=== PATIENT | female | born 1975 | race Caucasian/White ===

== ENCOUNTER 2017-05-21 01:29 | Inpatient (IN) | payer OTHER ==
[2017-05-21 01:50] VITALS: BMI 25.8
[2017-05-21] MEDS ORDERED: ONDANSETRON 4 MG/2 ML VIAL IVPUSH ONE ×2 (02:44→21:51)
[2017-05-21] MEDS ORDERED: SODIUM CHLORIDE 1,000 ML IV SCH (03:00)
[2017-05-21] MEDS ORDERED: ONDANSETRON 4 MG/2 ML VIAL ONE ×2 (03:00→17:06)
--- NOTE | 2017-05-21 03:05 | PDOC ---
Attending Attestation - HPI HPI: 05/21/17 03:09 The patient is a 41 year old female with a past medical history of gallstones who presents to the emergency department with nausea, vomiting, and bloody diarrhea for 5 hours. The patient states that she ate talapia and mash potatoes for dinner yesterday and became sick shortly thereafter. She endorses associated chills and 10/10 pelvic pain. - Medical Decision Making 05/21/17 03:09 Documentation prepared by Bird De La Rosa, acting as associate medical director for Daryl Vick DO. <Bird De La Rosa - Last Filed: 05/21/17 03:09> - Resident Resident Name: Nidia Worrell - ED Attending Attestation I have performed the following: I have examined & evaluated the patient, The case was reviewed & discussed with the resident, I agree w/resident's findings & plan, Exceptions are as noted - Physicial Exam PE: 05/26/17 20:21 *Physical Exam General Appearance: Yes: Appropriately Dressed. No: Apparent Distress, Intoxicated HEENT: positive: EOMI, JUVE, Normal ENT Inspection, Normal Voice, TMs Normal, Pharynx Normal. negative: Pale Conjunctivae, Photophobia, Scleral Icterus (R), Scleral Icterus (L) Neck: positive: Trachea midline, Normal Thyroid, Supple. negative: Tender, Rigid, Carotid bruit, Stridor, Lymphadenopathy (R), Lymphadenopathy (L), Thyromegaly Respiratory/Chest: positive: Lungs Clear, Normal Breath Sounds. negative: Chest Tender, Respiratory Distress, Accessory Muscle Use, Labored Respiration, RES, Crackles, Rales, Rhonchi, Stridor, Wheezing, Dullness Cardiovascular: positive: Regular Rhythm, Regular Rate, S1, S2. negative: Edema , JVD, Murmur, Bradycardia, Tachycardia Vascular Pulses: Dorsalis-Pedis (R): 2+, Doralis-Pedis (L): 2+ Gastrointestinal/Abdominal: positive: Normal Bowel Sounds, Flat, Soft. diffuse tenderness negative: Organomegaly, Pulsatile Mass, Increased Bowel Sounds, Decreased BS, Distended, Guarding, Rebound, Hernia, Hepatomegaly, Spleenomegaly Lymphatic: negative: Adenopathy, Tenderness Musculoskeletal: positive: Normal Inspection. negative: CVA Tenderness, Decreased Range of Motion Extremity: positive: Normal Capillary Refill, Normal Inspection, Normal Range of Motion, Pelvis Stable. negative: Tender, Pedal Edema, Swelling, Erythema Integumentary: positive: Normal Color, Dry, Warm. negative: Cyanotic, Erythema , Jaundice, Rash Neurologic: positive: sales development consultant II-XII NML intact, Fully Oriented, Alert, Normal Mood/ Affect, Motor Strength 5/5. negative: EOM Palsy, Facial Droop, Sensory Deficit - Medical Decision Making 05/26/17 20:21 Pt was admitted to Med surg <Daryl Vick - Last Filed: 05/26/17 20:22>
--- NOTE | 2017-05-21 03:09 | PDOC ---
History of Present Illness - General Chief Complaint: Rectal Bleed Stated Complaint: BLOOD IN STOOL Time Seen by Provider: 05/21/17 02:34 History Source: Patient Exam Limitations: No Limitations - History of Present Illness Initial Comments: 05/21/17 03:07 41 F with PMH gallstones who presents to the ED c/o nausea and diarrhea over the past 5 hours. As per pt, at 10PM she ate Tilapia and mashed potatoes, and soon after developed repetitive episodes of NBNB emesis and bloody diarrhea. Pt states that blood is mixed in with her stool, and that she has also "passed many clots." During this time, pt endorses chills and 10/10 diffuse pelvic pain , which has no exacerbating or alleviating fx. Her LMP was on Thursday and she was sexually active on 05/06/17. She does not use control. Her daughter also ate the same meal and did not develop sx. Pt denies BAHENA, fever, SOB, chest pain, or changes in urinary function. 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 denies cigarette, alcohol, or recreational drug use Past History - Past Medical History Allergies/Adverse Reactions: Allergies Allergy/AdvReac Type Severity Reaction Status Date / Time No Known Allergies Allergy Verified 05/21/17 01:44 Home Medications: Ambulatory Orders Ibuprofen [Motrin -] 600 mg PO PRN 05/21/17 COPD: No - Suicide/Smoking/Psychosocial Hx Smoking History: Current every day smoker Number of Cigarettes Smoked Daily: 2 Information on smoking cessation initiated: No Hx Alcohol Use: No Drug/Substance Use Hx: No Review of Systems - Review of Systems Able to Perform ROS?: Yes Is the patient limited Urdu proficient: No Constitutional: Yes: Chills ABD/GI: Yes: Blood Streaked Bowels, Nausea, Vomiting *Physical Exam - Vital Signs Last Vital Signs Temp Pulse Resp BP Pulse Ox 97.7 F 67 18 114/72 99 05/21/17 01:42 05/21/17 01:42 05/21/17 01:42 05/21/17 01:42 05/21/17 01:42 - Physical Exam General Appearance: Yes: Moderate Distress, Other (+actively vomiting, shaking) HEENT: positive: EOMI, JUVE Neck: positive: Supple Respiratory/Chest: positive: Lungs Clear, Normal Breath Sounds Cardiovascular: positive: Regular Rhythm, Regular Rate, S1, S2 Vascular Pulses: Dorsalis-Pedis (R): 2+, Doralis-Pedis (L): 2+ Gastrointestinal/Abdominal: positive: Tenderness (+diffuse abdominal tenderness ) Rectal Exam: positive: other (+actively bleeding) Neurologic: positive: senior sales consultant II-XII NML intact Heart Score/ECG Review - ECG Impressions Comment:: 05/21/17 06:11 NSR, Qtc 459 ms, HI 164ms ED Treatment Course - LABORATORY CBC & Chemistry Diagram: 05/21/17 03:23 05/21/17 03:23 Medical Decision Making - Medical Decision Making 05/21/17 03:24 41 F with PMH gallstones who presents to the ED c/o nausea and diarrhea over the past 5 hours. Suspect infectious etiology as sudden, rapid onset, possible ? allergy. Will get CT abdomen/pelvis w/o contrast- to r/o colitis. Will order the following CBC CMP CT abd pelvis w/o contrast IVF Zofran B Hcg 05/21/17 04:50 CT scan reveals colitis splenic flexure to rectum will start abx ill appearing, white count ~20 - reactive+colitis 05/21/17 05:16 d/w Dr. Mccarthy for med-surg *DC/Admit/Observation/Transfer Diagnosis at time of Disposition: Colitis - Discharge Dispostion Condition at time of disposition: Guarded Admit: Yes - Referrals Referrals: Nicanor Santos [Primary Care Provider] - - Patient Instructions - Post Discharge Activity
[2017-05-21 03:31] LABS: BASO % 0.4 % (0-2.0); EOS % 0.1 % (0-4.5); HEMATOCRIT 43.2 % (32.4-45.2); HEMOGLOBIN 14.3 GM/dL (10.7-15.3); LYMPH % 6.3 % (8-40); MCH 26.9 pg (25.7-33.7); MCHC 33.2 g/dl (32.0-36.0); MEAN PLT VOLUME 9.3 fl (7.5-11.1); MONO % 5.7 % (3.8-10.2); NEUT % 87.5 % (42.8-82.8); PLATELET COUNT 255 K/MM3 (134-434); RBC 5.34 M/mm3 (3.60-5.2); RDW 13.5 % (11.6-15.6); WHITE BLOOD COUNT 20.9 K/mm3 (4.0-10.0)
[2017-05-21 04:04] LABS: ALK PHOS 96 U/L (45-117); ANION GAP 11 (8-16); BILIRUBIN,TOTAL 0.4 mg/dL (0.2-1.0); BLOOD UREA NITROGEN 14 mg/dL (7-18); CALCIUM 8.9 mg/dL (8.5-10.1); CHLORIDE 106 mmol/L (98-107); CO2 21 mmol/L (21-32); CREATININE 0.9 mg/dL (0.55-1.02); GLUCOSE,RANDOM 137 mg/dL (74-106); POTASSIUM 4.1 mmol/L (3.5-5.1); SGOT/AST 27 U/L (15-37); SGPT/ALT 48 U/L (12-78); SODIUM 138 mmol/L (136-145); TOT PROT 7.2 g/dl (6.4-8.2)
[2017-05-21] MEDS ORDERED: ONDANSETRON 4 MG/2 ML VIAL IVPUSH STA (04:52)
[2017-05-21] MEDS ORDERED: morphine CARPU-JECT 2 MG/1 ML DISP.SYRIN IVPUSH ONE (04:52)
[2017-05-21] MEDS ORDERED: METOCLOPRAMIDE HCL INJECTION 10 MG/2 ML VIAL IVPUSH ONE (04:53)
[2017-05-21] MEDS ORDERED: SODIUM CHLORIDE 1,000 ML IV STA (04:53)
[2017-05-21] MEDS ORDERED: METOCLOPRAMIDE HCL INJECTION 10 MG/2 ML VIAL ONE (04:58)
[2017-05-21] MEDS ORDERED: MORPHINE SULFATE 10 MG/1 ML *VIAL ONE (05:01)
[2017-05-21 05:43] LABS: INR 1.04 (0.82-1.09); PROTHROMBIN TIME (PATIENT) 11.8 SEC (9.98-11.88)
--- NOTE | 2017-05-21 06:01 | HP ---
CHIEF COMPLAINT: N/V/D PCP: Akhil Santos HISTORY OF PRESENT ILLNESS: This is a 41 year old female with a past medical history of gallstones presented to the ED with a 5 hour history of nausea, NBNB vomiting and bloody diarrhea. Pt states she ate tilapia and mashed potatoes and then became ill shortly after eating. Pt reports last episode BM was at home, none here. one further episode vomiting here. ER course was notable for: (1) WBC 20.9 (2) CT c/w colitis Recent Travel: pt denies PAST MEDICAL HISTORY: gallstones PAST SURGICAL HISTORY: L breast mass excision urethral diverticulum excision Social History: Smokin cig/day Alcohol: pt denies Drugs: pt denies Family History: father, one sister and one daughter with asthma no other family memebers with medical problems Allergies No Known Allergies Allergy (Verified 05/21/17 01:44) HOME MEDICATIONS: 3 Medication Instructions Recorded Ibuprofen [Motrin -] 600 mg PO PRN 05/21/17 REVIEW OF SYSTEMS CONSTITUTIONAL: Absent: fever, chills, diaphoresis, generalized weakness, malaise, loss of appetite, weight change HEENT: Absent: rhinorrhea, nasal congestion, throat pain, throat swelling, difficulty swallowing, mouth swelling, ear pain, eye pain, visual changes CARDIOVASCULAR: Absent: chest pain, syncope, palpitations, irregular heart rate, lightheadedness , peripheral edema RESPIRATORY: Absent: cough, shortness of breath, dyspnea with exertion, orthopnea, wheezing, stridor, hemoptysis GASTROINTESTINAL: Present: abdominal pain, nausea, vomiting, diarrhea Absent: abdominal distension, constipation, melena, hematochezia GENITOURINARY: Absent: dysuria, frequency, urgency, hesitancy, hematuria, flank pain, genital pain MUSCULOSKELETAL: Absent: myalgia, arthralgia, joint swelling, back pain, neck pain SKIN: Absent: rash, itching, pallor HEMATOLOGIC/IMMUNOLOGIC: Absent: easy bleeding, easy bruising, lymphadenopathy, frequent infections ENDOCRINE: Absent: unexplained weight gain, unexplained weight loss, heat intolerance, cold intolerance NEUROLOGIC: Absent: headache, focal weakness or paresthesias, dizziness, unsteady gait, seizure, mental status changes, bladder or bowel incontinence PSYCHIATRIC: Absent: anxiety, depression, suicidal or homicidal ideation, hallucinations. PHYSICAL EXAMINATION Vital Signs - 24 hr 3 05/21/17 01:42 Temperature 97.7 F Pulse Rate 67 Respiratory 18 Rate Blood Pressure 114/72 O2 Sat by Pulse 99 Oximetry (%) GENERAL: Awake, alert, and fully oriented, in no acute distress. HEAD: Normal with no signs of trauma. EYES: Pupils equal, round and reactive to light, extraocular movements intact, sclera anicteric, conjunctiva clear. No lid lag. EARS, NOSE, THROAT: Ears normal, nares patent, oropharynx clear without exudates. Moist mucous membranes. NECK: Normal range of motion, supple without lymphadenopathy, JVD, or masses. LUNGS: Breath sounds equal, clear to auscultation bilaterally. No wheezes, and no crackles. No accessory muscle use. HEART: Regular rate and rhythm, normal S1 and S2 without murmur, rub or gallop. ABDOMEN: Soft, tender on deep palpation to RLQ, not distended, normoactive bowel sounds, no guarding, no rebound, no masses. No hepatomegaly or splenomegaly. MUSCULOSKELETAL: Normal range of motion at all joints. No bony deformities or tenderness. No CVA tenderness. UPPER EXTREMITIES: 2+ pulses, warm, well-perfused. No cyanosis. No clubbing. No peripheral edema. LOWER EXTREMITIES: 2+ pulses, warm, well-perfused. No calf tenderness. No peripheral edema. NEUROLOGICAL: Cranial nerves II-XII intact. Normal speech. Normal gait. PSYCHIATRIC: Cooperative. Good eye contact. Appropriate mood and affect. SKIN: Warm, dry, normal turgor, no rashes or lesions noted, normal capillary refill. Laboratory Results - last 24 hr 3 05/21/17 05/21/17 05/21/17 03:23 03:23 03:23 WBC 20.9 H RBC 5.34 H Hgb 14.3 Hct 43.2 MCV 81.0 MCH 26.9 MCHC 33.2 RDW 13.5 Plt Count 255 MPV 9.3 Neutrophils % 87.5 H Lymphocytes % 6.3 L Monocytes % 5.7 Eosinophils % 0.1 Basophils % 0.4 PT with INR 11.80 INR 1.04 Sodium 138 Potassium 4.1 Chloride 106 Carbon Dioxide 21 Anion Gap 11 BUN 14 Creatinine 0.9 Creat Clearance w eGFR > 60 Random Glucose 137 H Calcium 8.9 Total Bilirubin 0.4 AST 27 ALT 48 Alkaline Phosphatase 96 Total Protein 7.2 Albumin 4.0 Beta HCG, Quant < 1.0 Blood Type O POSITIVE Antibody Screen Negative ECG Normal sinus rhythm Vent rate 68, QTC [address]/T wave changes ASSESSMENT/PLAN: 41yF with PMH gallstones presented to the ED with N/V and bloody diarrhea. Colitis - cont levaquin and flagyl - NS @ 100cc/hr - NPO for now, may trial clear liquids for lunch if no further vomiting/ diarrhea - stool for micro specimens - consider GI consult if not improving - repeat CBC at 9am (6hours from first) DVT PPX - defer at this time, expected LOS<48h FEN - NS @ 100cc/hr - BMP at 9am - NPO for now Dispo: Pt admitted to observation status Visit type - Emergency Visit Emergency Visit: Yes ED Registration Date: 05/21/17 Care time: The patient presented to the Emergency Department on the above date and was hospitalized for further evaluation of their emergent condition. - New Patient This patient is new to me today: Yes Date on this admission: 05/21/17 - Critical Care Critical Care patient: No Hospitalist Screening - Colonoscopy Questionnaire Colonoscopy Questionnaire: Colonoscopy Questionnaire - Patient: 50 - 75 years old and never had a screening colonoscopy: No History of colon or rectal polyps, or CA: No History of IBD, Crohn's disease or UC: No History of abdominal radiation therapy as a child: No - Relative: 1 with colon or rectal CA, or polyps at age 60 or younger: No Colon or rectal CA diagnosed at age 45 or younger: No Multiple relatives with colon or rectal CA: No - Outcome: Screening Result: Negative Screen
[2017-05-21] MEDS: SODIUM CHLORIDE 1,000 ML IV SCH (06:17)
--- NOTE | 2017-05-21 08:48 | PN ---
<Talha Espinoza - Last Filed: 05/21/17 15:35> Physical Exam: SUBJECTIVE: Patient seen and examined at bedside. had non bloody non vomiting and bloody diarrhea last night after she ate fish Telabia. she denies any fever , chills but she has been taking Ibuprofen. reports diffuse abdominal pain. she denies any chest pain or sob , palpitation , no headache or light headedness. had multiple BM . OBJECTIVE: Vital Signs Period Temp Pulse Resp BP Sys/Pickreing Pulse Ox Last 24 Hr 97.7 F-98.8 F 65-67 18-18 99-114/50-72 98-99 GENERAL: The patient is awake, alert, and fully oriented, in mild distress. HEAD: Normal with no signs of trauma. EYES: PERRL, extraocular movements intact, sclera anicteric, conjunctiva clear. ENT: moist mucous membranes. NECK: supple. LUNGS: Breath sounds equal, clear to auscultation bilaterally, no wheezes, no crackles, no accessory muscle use. HEART: Regular rate and rhythm, S1, S2 without murmur, rub or gallop. ABDOMEN: Soft, diffuse tendererness LLQ and LUQ, nondistended, normoactive bowel sounds, no guarding, no rebound, EXTREMITIES: 2+ pulses, warm, well-perfused, no edema. NEUROLOGICAL: no focal deficit. Normal speech, gait not observed. PSYCH: Normal mood, normal affect. SKIN: Warm, dry, normal turgor, Laboratory Results - last 24 hr 05/21/17 05/21/17 05/21/17 03:23 03:23 03:23 WBC 20.9 H RBC 5.34 H Hgb 14.3 Hct 43.2 MCV 81.0 MCH 26.9 MCHC 33.2 RDW 13.5 Plt Count 255 MPV 9.3 Neutrophils % 87.5 H Lymphocytes % 6.3 L Monocytes % 5.7 Eosinophils % 0.1 Basophils % 0.4 PT with INR INR Sodium 138 Potassium 4.1 Chloride 106 Carbon Dioxide 21 Anion Gap 11 BUN 14 Creatinine 0.9 Creat Clearance w eGFR > 60 Random Glucose 137 H Calcium 8.9 Total Bilirubin 0.4 AST 27 ALT 48 Alkaline Phosphatase 96 Total Protein 7.2 Albumin 4.0 Beta HCG, Quant Blood Type O POSITIVE Antibody Screen Negative 05/21/17 05/21/17 03:23 05:21 WBC RBC Hgb Hct MCV MCH MCHC RDW Plt Count MPV Neutrophils % Lymphocytes % Monocytes % Eosinophils % Basophils % PT with INR 11.80 INR 1.04 Sodium Potassium Chloride Carbon Dioxide Anion Gap BUN Creatinine Creat Clearance w eGFR Random Glucose Calcium Total Bilirubin AST ALT Alkaline Phosphatase Total Protein Albumin Beta HCG, Quant < 1.0 Blood Type Antibody Screen Active Medications Generic Name Dose Route Start Last Admin Trade Name Freq PRN Reason Stop Dose Admin Sodium Chloride 1,000 mls @ 100 mls/hr 05/21/17 06:15 05/21/17 06:17 Normal Saline - IV 100 mls/hr ASDIR RINA Administration Metronidazole 500 mg in 100 mls @ 100 mls/hr 05/21/17 10:00 Flagyl 500mg Premixed Ivpb - IVPB Q8H-IV RINA Levofloxacin 500 mg in 100 mls @ 100 mls/hr 05/22/17 06:00 Levaquin 500 Mg Premixed Ivpb - IVPB DAILY@0600 RINA CBC, BMP 05/21/17 03:23 05/21/17 03:23 EKG: NSR,Vent rate 68, QTC 459No acute St/T wave changes Ct abdomen and pelvis : acute colitis from transverse till rectum , choledocolithisis with no acute cholecystitis , no CBD dilation. 3 cm left ovarian cysts. ASSESSMENT/PLAN: 41 year old female with PMh of choledocolithisis presented to the hospital with one day h/o of NBNB vomiting and bloody diarrhea was found to have acute cholitis on Ct scan and was admitted to inpatient for further evaluation. # Acute cholitis (infectious vs inflammatory ) with bloody diarrhea * wbc 20.9 but no fever or chills. * N/V after dinner last night diffuse abdominal pain with LLQ tenderness , * TA with blood on exam * H/O recent abx * C.diff toxin assays * Stool ove and paracytes * CBC , CMP * IV fluids NS @ 100 CC/hr * started Metronidazol 500 IVBP q 8hr and Levaquin 500 mg IVBP daily * NPO for now to rest bryant bowel * GI Consulted appreciate recommendations : consider colonoscopy if did not improve in 3 days or 6 weeks from now per GI. * Zofran PRN for nausea Proph : * DVTs: Early ambulations * GI: no need for now * # FEN: * F: NS @ 100 CC/hr * E: WNL monitor BMP * N: NPO for now # Dispo: admit to inpatient services. Visit type - Emergency Visit Emergency Visit: Yes ED Registration Date: 05/21/17 Care time: The patient presented to the Emergency Department on the above date and was hospitalized for further evaluation of their emergent condition. - New Patient This patient is new to me today: Yes Date on this admission: 05/21/17 - Critical Care Critical Care patient: No <LindaJordan - Last Filed: 05/21/17 17:21> Physical Exam: Patient is feeling better today. No diarrhea , developed bloody diarrhea after having Telapia. Developed fever and chills. presented with Leukocytosis of 20, 000 trending down 14K today on IV antibiotic Levaquin and Flagyl will continue, GI consulted. Vital Signs Temperature 98.7 F 05/21/17 08:10 Pulse Rate 60 05/21/17 14:53 Respiratory Rate 18 05/21/17 14:53 Blood Pressure 100/55 05/21/17 14:53 O2 Sat by Pulse Oximetry (%) 99 05/21/17 14:53 CBCD WBC 14.9 K/mm3 (4.0-10.0) H 05/21/17 09:18 RBC 4.91 M/mm3 (3.60-5.2) 05/21/17 09:18 Hgb 13.3 GM/dL (10.7-15.3) 05/21/17 09:18 Hct 40.0 % (32.4-45.2) 05/21/17 09:18 MCV 81.4 fl (80-96) 05/21/17 09:18 MCHC 33.2 g/dl (32.0-36.0) 05/21/17 09:18 RDW 13.9 % (11.6-15.6) 05/21/17 09:18 Plt Count 226 K/MM3 (134-434) 05/21/17 09:18 MPV 8.7 fl (7.5-11.1) 05/21/17 09:18 CMP Sodium 141 mmol/L (136-145) 05/21/17 09:18 Potassium 4.3 mmol/L (3.5-5.1) 05/21/17 09:18 Chloride 108 mmol/L (98-107) H 05/21/17 09:18 Carbon Dioxide 27 mmol/L (21-32) 05/21/17 09:18 Anion Gap 6 (8-16) L 05/21/17 09:18 BUN 11 mg/dL (7-18) 05/21/17 09:18 Creatinine 0.7 mg/dL (0.55-1.02) 05/21/17 09:18 Creat Clearance w eGFR > 60 (>60) 05/21/17 03:23 Random Glucose 110 mg/dL (74-106) H 05/21/17 09:18 Calcium 7.9 mg/dL (8.5-10.1) L 05/21/17 09:18 Total Bilirubin 0.4 mg/dL (0.2-1.0) 05/21/17 03:23 AST 27 U/L (15-37) 05/21/17 03:23 ALT 48 U/L (12-78) 05/21/17 03:23 Alkaline Phosphatase 96 U/L (45-117) 05/21/17 03:23 Total Protein 7.2 g/dl (6.4-8.2) 05/21/17 03:23 Albumin 4.0 g/dl (3.4-5.0) 05/21/17 03:23 Home Medications Medication Instructions Recorded Ibuprofen [Motrin -] 600 mg PO PRN 05/21/17 Current Medications Generic Name Dose Route Start Last Admin Trade Name Víctorq PRN Reason Stop Dose Admin Acetaminophen 650 mg 05/21/17 16:52 Tylenol - PO Q6H PRN PAIN Sodium Chloride 1,000 mls @ 100 mls/hr 05/21/17 06:15 05/21/17 06:17 Normal Saline - IV 100 mls/hr ASDIR RINA Administration Metronidazole 500 mg in 100 mls @ 100 mls/hr 05/21/17 10:00 05/21/17 10:54 Flagyl 500mg Premixed Ivpb - IVPB 100 mls/hr Q8H-IV RINA Administration Levofloxacin 500 mg in 100 mls @ 100 mls/hr 05/22/17 06:00 Levaquin 500 Mg Premixed Ivpb - IVPB DAILY@0600 [facility] Ondansetron HCl 6 mg 05/21/17 16:50 05/21/17 17:14 Zofran Injection IVPB 6 mg Q6H PRN Administration NAUSEA
[2017-05-21 09:26] LABS: HEMOGLOBIN 13.3 GM/dL (10.7-15.3); MCH 27.1 pg (25.7-33.7); MCHC 33.2 g/dl (32.0-36.0); MEAN CELL VOLUME 81.4 fl (80-96); MEAN PLT VOLUME 8.7 fl (7.5-11.1); PLATELET COUNT 226 K/MM3 (134-434); RBC 4.91 M/mm3 (3.60-5.2); RDW 13.9 % (11.6-15.6); WHITE BLOOD COUNT 14.9 K/mm3 (4.0-10.0)
[2017-05-21 10:07] LABS: ANION GAP 6 (8-16); BLOOD UREA NITROGEN 11 mg/dL (7-18); CALCIUM 7.9 mg/dL (8.5-10.1); CHLORIDE 108 mmol/L (98-107); CO2 27 mmol/L (21-32); CREATININE 0.7 mg/dL (0.55-1.02); GLUCOSE,RANDOM 110 mg/dL (74-106); MAGNESIUM 1.8 mg/dL (1.8-2.4); PHOSPHOROUS 4.1 mg/dL (2.5-4.9); POTASSIUM 4.3 mmol/L (3.5-5.1); SODIUM 141 mmol/L (136-145)
--- NOTE | 2017-05-21 11:37 | EKG ---
Test Reason : Blood Pressure : / mmHG Vent. Rate : 068 BPM Atrial Rate : 068 BPM P-R Int : 164 ms QRS Dur : 074 ms QT Int : 432 ms P-R-T Axes : 067 059 052 degrees QTc Int : 459 ms NORMAL SINUS RHYTHM POSSIBLE LEFT ATRIAL ENLARGEMENT LOW VOLTAGE QRS BORDERLINE ECG NO PREVIOUS ECGS AVAILABLE Confirmed by LUZMARIA CARVER MD ([id number]) on 05/21/2017 11:36:56 AM Referred By: Confirmed By:LUZMARIA CARVER MD
[2017-05-21 11:41] LABS: PLATELET ESTIMATE ADEQUATE
--- NOTE | 2017-05-21 12:17 | CON.GI ---
Consult Consult Specialty:: GI Reason for Consultation:: hematochezia, gastroneteritis - History of Present Illness History of Present Illness: The patient is a 41 year old female with a past medical history of gallstones who presents to the emergency department with nausea, vomiting, and bloody diarrhea for 5 hours. The patient states that she ate talapia and mash potatoes for dinner yesterday and developed nausea, vomiting followed by hematochezia and lower abdominal cramps. Pt reports chills. Her daughter, who had the same food, appears to be fine. Took Advil and Motrin earlier that day for tooth ache. Deneis chronic NSAID use. No prior episodes of the same. No recent changes in bowels, weight loss, joint, skin, back, eye symptoms. No personal, or family history of chronic colitis. - History Source History Provided By: Patient - Alcohol/Substance Use Hx Alcohol Use: No - Smoking History Smoking history: Current every day smoker Aproximately how many cigarettes per day: 2 Home Medications - Allergies Allergies/Adverse Reactions: Allergies Allergy/AdvReac Type Severity Reaction Status Date / Time No Known Allergies Allergy Verified 05/21/17 01:44 - Home Medications Home Medications: Ambulatory Orders Ibuprofen [Motrin -] 600 mg PO PRN 05/21/17 Family Disease History - Family Disease History Family History: Unremarkable Review of Systems Findings/Remarks: at base line prior to last night Physical Exam-GI Vital Signs: Vital Signs Temperature 98.7 F 05/21/17 08:10 Pulse Rate 65 05/21/17 08:10 Respiratory Rate 18 05/21/17 08:10 Blood Pressure 102/60 05/21/17 08:10 O2 Sat by Pulse Oximetry (%) 99 05/21/17 08:10 Constitutional: Yes: Well Nourished, No Distress, Calm Eyes: Yes: Conjunctiva Clear HENT: Yes: Atraumatic Neck: Yes: Supple Cardiovascular: Yes: Regular Rate and Rhythm Respiratory: Yes: Regular Gastrointestinal Inspection: No: Ascites, Distention ...Auscultate: Yes: Normoactive Bowel Sounds ...Palpate: Yes: Tenderness. No: Firm/Rigid, Guarding Neurological: Yes: Alert, Oriented Labs: CBC, BMP 05/21/17 09:18 05/21/17 09:18 INR, PTT INR 1.04 (0.82-1.09) 05/21/17 05:21 Laboratory Tests 05/21/17 05/21/17 05/21/17 03:23 03:23 03:23 WBC 20.9 H RBC 5.34 H Hgb 14.3 Hct 43.2 MCV 81.0 MCH 26.9 MCHC 33.2 RDW 13.5 Plt Count 255 MPV 9.3 Neutrophils % 87.5 H Neutrophils % (Manual) Band Neutrophils % Lymphocytes % 6.3 L Lymphocytes % (Manual) Monocytes % 5.7 Monocytes % (Manual) Eosinophils % 0.1 Basophils % 0.4 Platelet Estimate PT with INR INR Sodium 138 Potassium 4.1 Chloride 106 Carbon Dioxide 21 Anion Gap 11 BUN 14 Creatinine 0.9 Creat Clearance w eGFR > 60 Random Glucose 137 H Calcium 8.9 Phosphorus Magnesium Total Bilirubin 0.4 AST 27 ALT 48 Alkaline Phosphatase 96 Total Protein 7.2 Albumin 4.0 Beta HCG, Quant Stool Occult Blood Blood Type O POSITIVE Antibody Screen Negative 05/21/17 05/21/17 05/21/17 03:23 05:21 09:18 WBC 14.9 H RBC 4.91 Hgb 13.3 Hct 40.0 MCV 81.4 MCH 27.1 MCHC 33.2 RDW 13.9 Plt Count 226 MPV 8.7 Neutrophils % No Result Required. Neutrophils % (Manual) 89.0 H Band Neutrophils % 4.0 Lymphocytes % No Result Required. Lymphocytes % (Manual) 4.0 L Monocytes % Monocytes % (Manual) 3 L Eosinophils % Basophils % Platelet Estimate Adequate PT with INR 11.80 INR 1.04 Sodium Potassium Chloride Carbon Dioxide Anion Gap BUN Creatinine Creat Clearance w eGFR Random Glucose Calcium Phosphorus Magnesium Total Bilirubin AST ALT Alkaline Phosphatase Total Protein Albumin Beta HCG, Quant < 1.0 Stool Occult Blood Blood Type Antibody Screen 05/21/17 05/21/17 09:18 09:41 WBC RBC Hgb Hct MCV MCH MCHC RDW Plt Count MPV Neutrophils % Neutrophils % (Manual) Band Neutrophils % Lymphocytes % Lymphocytes % (Manual) Monocytes % Monocytes % (Manual) Eosinophils % Basophils % Platelet Estimate PT with INR INR Sodium 141 Potassium 4.3 Chloride 108 H Carbon Dioxide 27 Anion Gap 6 L BUN 11 Creatinine 0.7 Creat Clearance w eGFR Random Glucose 110 H Calcium 7.9 L Phosphorus 4.1 Magnesium 1.8 Total Bilirubin AST ALT Alkaline Phosphatase Total Protein Albumin Beta HCG, Quant Stool Occult Blood Positive Blood Type Antibody Screen Imaging - Results Cat Scan: Report Reviewed Problem List - Problems (1) Hematochezia Code(s): K92.1 - MELENA (2) Colitis Code(s): K52.9 - NONINFECTIVE GASTROENTERITIS AND COLITIS, UNSPECIFIED Assessment/Plan Suspect infectious colitis. R/o IBD. Doubt ischemic colitis. Bowel rest Stool for infections etiologies, including c. diff toxin IV hydration Antiemetics PRN CBC, CMP daily Cipro/Flagyl Colonoscopy in 6 weeks, or on this admission, if not better in 2-3 days
[2017-05-21] MEDS ORDERED: ONDANSETRON 4 MG/2 ML VIAL IVPB PRN (16:50)
[2017-05-21] MEDS ORDERED: ACETAMINOPHEN 325 MG TABLET (FP) PO PRN (16:52)
[2017-05-21] MEDS ORDERED: ACETAMINOPHEN 1000 MG/100 ML VIAL (NON FORMULARY) IVPB ONE ×2 (17:00→21:52)
[2017-05-21] MEDS ORDERED: ACETAMINOPHEN INJECTION 100 ML IVPB ONE (17:06)
[2017-05-22 07:06] LABS: BASO % 0.1 % (0-2.0); EOS % 0.3 % (0-4.5); HEMATOCRIT 36.2 % (32.4-45.2); LYMPH % 15.5 % (8-40); MCH 27.3 pg (25.7-33.7); MCHC 33.2 g/dl (32.0-36.0); MEAN PLT VOLUME 9.1 fl (7.5-11.1); MONO % 6.2 % (3.8-10.2); NEUT % 77.9 % (42.8-82.8); PLATELET COUNT 198 K/MM3 (134-434); RBC 4.41 M/mm3 (3.60-5.2); WHITE BLOOD COUNT 13.2 K/mm3 (4.0-10.0)
[2017-05-22] MEDS ORDERED: PROMETHAZINE HCL 25 MG/1 ML VIAL IVPB PRN (08:01)
[2017-05-22 08:05] LABS: ALBUMIN 2.9 g/dl (3.4-5.0); ANION GAP 11 (8-16); BLOOD UREA NITROGEN 8 mg/dL (7-18); CALCIUM 7.8 mg/dL (8.5-10.1); CHLORIDE 108 mmol/L (98-107); CO2 22 mmol/L (21-32); GLUCOSE,RANDOM 102 mg/dL (74-106); POTASSIUM 3.6 mmol/L (3.5-5.1); SODIUM 141 mmol/L (136-145)
[2017-05-22 08:10] LABS: ALK PHOS 65 U/L (45-117); BILIRUBIN,TOTAL 0.6 mg/dL (0.2-1.0); CREATININE 0.7 mg/dL (0.55-1.02); SGOT/AST 17 U/L (15-37); SGPT/ALT 28 U/L (12-78); TOT PROT 5.8 g/dl (6.4-8.2)
[2017-05-22] MEDS ORDERED: ACETAMINOPHEN 1000 MG/100 ML VIAL (NON FORMULARY) IVPB ONE (08:10)
[2017-05-22] MEDS ORDERED: morphine SULFATE 4 MG/ML VIAL IVPUSH PRN (08:32)
--- NOTE | 2017-05-22 08:53 | PN ---
<Talha Espinoza - Last Filed: 05/22/17 11:36> Physical Exam: SUBJECTIVE: Patient seen and examined at bedside. complaining of sever abdominal pain LLQ and RLQ and RUQ pain. had some nausea, denies any fever, chills, cp, sob. still npo denies any blood in stool or mucus. OBJECTIVE: Vital Signs Period Temp Pulse Resp BP Sys/[place] Pulse Ox Last 24 Hr 98.4 F-99.2 F 53-73 18-18 100-120/55-63 99-99 GENERAL: The patient is awake, alert, and fully oriented, in no acute distress. HEAD: Normal with no signs of trauma. EYES: sclera anicteric, conjunctiva clear. ENT: moist mucous membranes. NECK: supple. LUNGS: Breath sounds equal, clear to auscultation bilaterally, no wheezes, no crackles, no accessory muscle use. HEART: Regular rate and rhythm, S1, S2 without murmur, rub or gallop. ABDOMEN: Soft, LLQ and RLQ tenderness, nondistended, normoactive bowel sounds, no guarding, no rebound ,[place]+ EXTREMITIES: 2+ pulses, warm, well-perfused, no edema. NEUROLOGICAL: Cranial nerves II through XII grossly intact. Normal speech, gait not observed. PSYCH: Normal mood, normal affect. SKIN: Warm, dry, normal turgor, Laboratory Results - last 24 hr 05/21/17 05/21/17 05/21/17 09:18 09:18 09:41 WBC 14.9 H RBC 4.91 Hgb 13.3 Hct 40.0 MCV 81.4 MCH 27.1 MCHC 33.2 RDW 13.9 Plt Count 226 MPV 8.7 Neutrophils % No Result Required. Neutrophils % (Manual) 89.0 H Band Neutrophils % 4.0 Lymphocytes % No Result Required. Lymphocytes % (Manual) 4.0 L Monocytes % Monocytes % (Manual) 3 L Eosinophils % Basophils % Platelet Estimate Adequate Sodium 141 Potassium 4.3 Chloride 108 H Carbon Dioxide 27 Anion Gap 6 L BUN 11 Creatinine 0.7 Creat Clearance w eGFR Random Glucose 110 H Calcium 7.9 L Phosphorus 4.1 Magnesium 1.8 Total Bilirubin AST ALT Alkaline Phosphatase Total Protein Albumin Stool Occult Blood Positive 05/22/17 05/22/17 06:50 06:50 WBC 13.2 H RBC 4.41 Hgb 12.0 Hct 36.2 MCV 82.0 MCH 27.3 MCHC 33.2 RDW 14.0 Plt Count 198 MPV 9.1 Neutrophils % 77.9 Neutrophils % (Manual) Band Neutrophils % Lymphocytes % 15.5 D Lymphocytes % (Manual) Monocytes % 6.2 Monocytes % (Manual) Eosinophils % 0.3 D Basophils % 0.1 Platelet Estimate Sodium 141 Potassium 3.6 Chloride 108 H Carbon Dioxide 22 Anion Gap 11 BUN 8 Creatinine 0.7 Creat Clearance w eGFR > 60 Random Glucose 102 Calcium 7.8 L Phosphorus Magnesium Total Bilirubin 0.6 D AST 17 ALT 28 Alkaline Phosphatase 65 Total Protein 5.8 L Albumin 2.9 L Stool Occult Blood Active Medications Generic Name Dose Route Start Last Admin Trade Name Freq PRN Reason Stop Dose Admin Acetaminophen 650 mg 05/21/17 16:52 Tylenol - PO Q6H PRN PAIN Sodium Chloride 1,000 mls @ 100 mls/hr 05/21/17 06:15 05/21/17 06:17 Normal Saline - IV 100 mls/hr ASDIR RINA Administration Metronidazole 500 mg in 100 mls @ 100 mls/hr 05/21/17 10:00 05/22/17 02:07 Flagyl 500mg Premixed Ivpb - IVPB 100 mls/hr Q8H-IV RINA Administration Levofloxacin 500 mg in 100 mls @ 100 mls/hr 05/22/17 06:00 05/22/17 05:18 Levaquin 500 Mg Premixed Ivpb - IVPB 100 mls/hr DAILY@0600 RINA Administration Morphine Sulfate 2 mg 05/22/17 08:32 Morphine Sulfate IVPUSH Q4H PRN PAIN LEVEL 1-5 Promethazine HCl 12.5 mg 05/22/17 08:01 Phenergan Injection - IVPB Q6H PRN NAUSEA AND/OR VOMITING CBC, BMP 05/22/17 06:50 05/22/17 06:50 EKG: NSR,Vent rate 68, QTC 459No acute St/T wave changes Ct abdomen and pelvis : acute colitis from transverse till rectum , choledocolithisis with no acute cholecystitis , no CBD dilation. 3 cm left ovarian cysts. ASSESSMENT/PLAN: 41 year old female with PMh of choledocolithisis presented to the hospital with one day h/o of NBNB vomiting and bloody diarrhea was found to have acute cholitis on Ct scan and was admitted to inpatient for further evaluation. # Acute cholitis (infectious vs inflammatory ) with bloody diarrhea * still in sever pain and nausea * wbc 20.9....13.2 trending down no fever or chills. * still has nausea with diffuse abdominal pain with LLQ, RLQ tenderness ,but no vomiting . Rutledge positive * F/U C.diff toxin assays * Stool ove and paracytes * CBC , CMP , CRP daily * continue IV fluids NS @ 100 CC/hr * cont Metronidazole 500 IVBP q 8hr and Levaquin 500 mg IVBP daily * NPO for now to rest the bowel * GI Consulted recommenced colonoscopy if did not improve in 3 days or 6 weeks from * Zofran 4 mg ivbp q6hr PRN for nausea /vomiting * Motrin 400 mg IVBP Q 6hr for pain Proph : * DVTs: Early ambulations , SCDS * GI: no need for now * # FEN: * F: NS @ 100 CC/hr * E: WNL monitor BMP * N: NPO for now # Dispo: admit to inpatient services. Visit type - Emergency Visit Emergency Visit: Yes ED Registration Date: 05/21/17 Care time: The patient presented to the Emergency Department on the above date and was hospitalized for further evaluation of their emergent condition. - New Patient This patient is new to me today: No - Critical Care Critical Care patient: No <[email or web address] chase - Last Filed: 05/22/17 18:18> Physical Exam: Patient is feeling better with no acute distress. Vital Signs Temperature 98.2 F 05/22/17 14:28 Pulse Rate 68 05/22/17 14:28 Respiratory Rate 20 05/22/17 14:28 Blood Pressure 133/67 05/22/17 14:28 O2 Sat by Pulse Oximetry (%) 100 05/22/17 09:00 CBCD WBC 13.2 K/mm3 (4.0-10.0) H 05/22/17 06:50 RBC 4.41 M/mm3 (3.60-5.2) 05/22/17 06:50 Hgb 12.0 GM/dL (10.7-15.3) 03/02/18 06:50 Hct 36.2 % (32.4-45.2) 05/22/17 06:50 MCV 82.0 fl (80-96) 05/22/17 06:50 MCHC 33.2 g/dl (32.0-36.0) 05/22/17 06:50 RDW 14.0 % (11.6-15.6) 05/22/17 06:50 Plt Count 198 K/MM3 (134-434) 05/22/17 06:50 MPV 9.1 fl (7.5-11.1) 05/22/17 06:50 CMP Sodium 141 mmol/L (136-145) 05/22/17 06:50 Potassium 3.6 mmol/L (3.5-5.1) 05/22/17 06:50 Chloride 108 mmol/L (98-107) H 05/22/17 06:50 Carbon Dioxide 22 mmol/L (21-32) 05/22/17 06:50 Anion Gap 11 (8-16) 05/22/17 06:50 BUN 8 mg/dL (7-18) 05/22/17 06:50 Creatinine 0.7 mg/dL (0.55-1.02) 05/22/17 06:50 Creat Clearance w eGFR > 60 (>60) 05/22/17 06:50 Random Glucose 102 mg/dL (74-106) 05/22/17 06:50 Calcium 7.8 mg/dL (8.5-10.1) L 05/22/17 06:50 Total Bilirubin 0.6 mg/dL (0.2-1.0) D 05/22/17 06:50 AST 17 U/L (15-37) 05/22/17 06:50 ALT 28 U/L (12-78) 05/22/17 06:50 Alkaline Phosphatase 65 U/L (45-117) 05/22/17 06:50 Total Protein 5.8 g/dl (6.4-8.2) L 05/22/17 06:50 Albumin 2.9 g/dl (3.4-5.0) L 05/22/17 06:50 Current Medications Generic Name Dose Route Start Last Admin Trade Name Freq PRN Reason Stop Dose Admin Acetaminophen 650 mg 05/22/17 14:59 05/22/17 16:27 Tylenol Oral Solution - PO 650 mg Q4H PRN Administration PAIN Sodium Chloride 1,000 mls @ 100 mls/hr 05/21/17 06:15 05/22/17 11:18 Normal Saline - IV 100 mls/hr ASDIR RINA Administration Metronidazole 500 mg in 100 mls @ 100 mls/hr 05/21/17 10:00 05/22/17 17:42 Flagyl 500mg Premixed Ivpb - IVPB 100 mls/hr Q8H-IV RINA Administration Levofloxacin 500 mg in 100 mls @ 100 mls/hr 05/22/17 06:00 05/22/17 05:18 Levaquin 500 Mg Premixed Ivpb - IVPB 100 mls/hr DAILY@0600 RINA Administration Ondansetron HCl 4 mg 05/22/17 09:24 Zofran Injection IVPB Q6H PRN NAUSEA Home Medications Medication Instructions Recorded Ibuprofen [Motrin -] 600 mg PO PRN 05/21/17 CRP is 2.5 , will repeat in am. Patient was seen BY GI , # Acute infectious colitis post eating Telapia, improving, will repeat CRP, cbc , cmp, mag, in am. Full liquid diet , Stool for infections etiologies, including c. diff toxin, continue IVF, Antiemetics PRN Levaquin/Flagyl continue , per GI ,colonoscopy in 6 weeks, or on this admission, if not better in 2-3 days
[2017-05-22] MEDS ORDERED: ONDANSETRON 4 MG/2 ML VIAL IVPB PRN (09:24)
[2017-05-22] MEDS ORDERED: IBUPROFEN 800 MG/8 ML IJ IVPB PRN (09:33)
[2017-05-22] MEDS: SODIUM CHLORIDE 1,000 ML IV SCH ×2 (11:18→23:55)
--- NOTE | 2017-05-22 15:04 | PN ---
Progress Note, Physician History of Present Illness: Has ~30 cc dark blood per ectum this am, per nurse. Clinically better. Reports overall improvement. Had lower badominal cramps overnight. No nausea, vomiting, fever. - Current Medication List Current Medications: Active Medications Acetaminophen (Tylenol Oral Solution -) 650 mg PO Q4H PRN PRN Reason: PAIN Sodium Chloride (Normal Saline -) 1,000 mls @ 100 mls/hr IV ASDIR [facility] Last Admin: 05/22/17 11:18 Dose: 100 mls/hr Metronidazole (Flagyl 500mg Premixed Ivpb -) 500 mg in 100 mls @ 100 mls/hr IVPB Q8H-IV RINA Last Admin: 05/22/17 11:17 Dose: 100 mls/hr Levofloxacin (Levaquin 500 Mg Premixed Ivpb -) 500 mg in 100 mls @ 100 mls/hr IVPB DAILY@0600 [facility] Last Admin: 05/22/17 05:18 Dose: 100 mls/hr Ondansetron HCl (Zofran Injection) 4 mg IVPB Q6H PRN PRN Reason: NAUSEA - Objective Vital Signs: Vital Signs Temperature 99.2 F 05/22/17 06:00 Pulse Rate 53 L 05/22/17 06:00 Respiratory Rate 18 05/22/17 06:00 Blood Pressure 109/63 05/22/17 06:00 O2 Sat by Pulse Oximetry (%) 99 05/21/17 22:00 Constitutional: Yes: Well Nourished, No Distress, Calm Eyes: Yes: Conjunctiva Clear HENT: Yes: Atraumatic Neck: Yes: Supple Cardiovascular: Yes: Regular Rate and Rhythm Respiratory: Yes: Regular Gastrointestinal: Yes: Normal Bowel Sounds, Soft, Tenderness. No: Ascites, Distention, Tenderness, Epigastrium, Tenderness, Rebound, Vomiting Neurological: Yes: Alert, Oriented Labs: CBC, BMP 05/22/17 06:50 05/22/17 06:50 INR, PTT INR 1.04 (0.82-1.09) 05/21/17 05:21 CBCD WBC 13.2 K/mm3 (4.0-10.0) H 05/22/17 06:50 RBC 4.41 M/mm3 (3.60-5.2) 05/22/17 06:50 Hgb 12.0 GM/dL (10.7-15.3) 05/22/17 06:50 Hct 36.2 % (32.4-45.2) 05/22/17 06:50 MCV 82.0 fl (80-96) 05/22/17 06:50 MCHC 33.2 g/dl (32.0-36.0) 05/22/17 06:50 RDW 14.0 % (11.6-15.6) 05/22/17 06:50 Plt Count 198 K/MM3 (134-434) 05/22/17 06:50 MPV 9.1 fl (7.5-11.1) 05/22/17 06:50 CMP Sodium 141 mmol/L (136-145) 05/22/17 06:50 Potassium 3.6 mmol/L (3.5-5.1) 05/22/17 06:50 Chloride 108 mmol/L (98-107) H 05/22/17 06:50 Carbon Dioxide 22 mmol/L (21-32) 05/22/17 06:50 Anion Gap 11 (8-16) 05/22/17 06:50 BUN 8 mg/dL (7-18) 05/22/17 06:50 Creatinine 0.7 mg/dL (0.55-1.02) 05/22/17 06:50 Creat Clearance w eGFR > 60 (>60) 05/22/17 06:50 Calcium 7.8 mg/dL (8.5-10.1) L 05/22/17 06:50 Total Bilirubin 0.6 mg/dL (0.2-1.0) D 05/22/17 06:50 AST 17 U/L (15-37) 05/22/17 06:50 ALT 28 U/L (12-78) 05/22/17 06:50 Alkaline Phosphatase 65 U/L (45-117) 05/22/17 06:50 Total Protein 5.8 g/dl (6.4-8.2) L 05/22/17 06:50 Albumin 2.9 g/dl (3.4-5.0) L 05/22/17 06:50 - ....Imaging Ultrasound: Report Reviewed (chelelithiasis) Problem List - Problems (1) Hematochezia Code(s): K92.1 - MELENA (2) Colitis Code(s): K52.9 - NONINFECTIVE GASTROENTERITIS AND COLITIS, UNSPECIFIED Assessment/Plan Suspect infectious colitis. R/o IBD. Doubt ischemic colitis. liquid diet Stool for infections etiologies, including c. diff toxin IV/PO hydration Antiemetics PRN CBC, CMP daily Cipro/Flagyl Colonoscopy in 6 weeks, or on this admission, if not better in 2-3 days
[2017-05-22] MEDS: ACETAMINOPHEN 650 MG/20.3 ML ORAL SOLUTION (CUPS) PO PRN ×2 (16:27→21:24)
[2017-05-23] MEDS: ACETAMINOPHEN 650 MG/20.3 ML ORAL SOLUTION (CUPS) PO PRN ×2 (05:35→10:44)
[2017-05-23] MEDS: SODIUM CHLORIDE 1,000 ML IV SCH ×2 (06:47→12:02)
[2017-05-23 08:22] LABS: BASO % 0.4 % (0-2.0); EOS % 0.8 % (0-4.5); HEMATOCRIT 35.8 % (32.4-45.2); HEMOGLOBIN 11.6 GM/dL (10.7-15.3); LYMPH % 24.1 % (8-40); MCH 26.7 pg (25.7-33.7); MCHC 32.4 g/dl (32.0-36.0); MEAN CELL VOLUME 82.6 fl (80-96); MEAN PLT VOLUME 9.5 fl (7.5-11.1); MONO % 5.6 % (3.8-10.2); NEUT % 69.1 % (42.8-82.8); PLATELET COUNT 227 K/MM3 (134-434); RBC 4.34 M/mm3 (3.60-5.2); RDW 13.8 % (11.6-15.6); WHITE BLOOD COUNT 12.3 K/mm3 (4.0-10.0)
[2017-05-23 08:26] LABS: ALBUMIN 2.8 g/dl (3.4-5.0); ALK PHOS 60 U/L (45-117); ANION GAP 9 (8-16); BILIRUBIN,TOTAL 0.4 mg/dL (0.2-1.0); BLOOD UREA NITROGEN 7 mg/dL (7-18); CALCIUM 7.9 mg/dL (8.5-10.1); CHLORIDE 108 mmol/L (98-107); CO2 25 mmol/L (21-32); CREATININE 0.7 mg/dL (0.55-1.02); GLUCOSE,RANDOM 89 mg/dL (74-106); MAGNESIUM 1.8 mg/dL (1.8-2.4); POTASSIUM 3.8 mmol/L (3.5-5.1); SGOT/AST 17 U/L (15-37); SGPT/ALT 22 U/L (12-78); SODIUM 142 mmol/L (136-145); TOT PROT 5.6 g/dl (6.4-8.2)
--- NOTE | 2017-05-23 15:17 | PN ---
Progress Note (short form) - Note Progress Note: Patient is comfortable with no acute distress, no further bleeding today. No abdominal pain is reported, able to eat without any difficulty. Vital Signs Temperature 98.0 F 05/23/17 10:00 Pulse Rate 59 L 05/23/17 10:00 Respiratory Rate 18 05/23/17 10:00 Blood Pressure 118/50 05/23/17 10:00 O2 Sat by Pulse Oximetry (%) 100 05/22/17 21:00 GENERAL: The patient is awake, alert, and fully oriented, in mild distress. HEAD: Normal with no signs of trauma. EYES: PERRL, extraocular movements intact, sclera anicteric, conjunctiva clear. ENT: moist mucous membranes. NECK: supple. NO JVD LUNGS: Breath sounds equal, clear to auscultation bilaterally, no wheezes, no crackles, no accessory muscle use. HEART: Regular rate and rhythm, S1, S2 without murmur, rub or gallop. ABDOMEN: Soft, NT, nondistended, positive for BS,bowel sounds, no guarding, no rebound, EXTREMITIES: 2+ pulses, warm, well-perfused, no edema. NEUROLOGICAL: no focal deficit. Normal speech, gait is steady PsYCH: Normal mood, normal affect. SKIN: Warm, dry, normal turgor, CBCD WBC 12.3 K/mm3 (4.0-10.0) H 05/23/17 07:00 RBC 4.34 M/mm3 (3.60-5.2) 05/23/17 07:00 Hgb 11.6 GM/dL (10.7-15.3) 05/23/17 07:00 Hct 35.8 % (32.4-45.2) 05/23/17 07:00 MCV 82.6 fl (80-96) 05/23/17 07:00 MCHC 32.4 g/dl (32.0-36.0) 05/23/17 07:00 RDW 13.8 % (11.6-15.6) 05/23/17 07:00 Plt Count 227 K/MM3 (134-434) 05/23/17 07:00 MPV 9.5 fl (7.5-11.1) 05/23/17 07:00 CMP Sodium 142 mmol/L (136-145) 05/23/17 07:00 Potassium 3.8 mmol/L (3.5-5.1) 05/23/17 07:00 Chloride 108 mmol/L (98-107) H 05/23/17 07:00 Carbon Dioxide 25 mmol/L (21-32) 05/23/17 07:00 Anion Gap 9 (8-16) 05/23/17 07:00 BUN 7 mg/dL (7-18) 05/23/17 07:00 Creatinine 0.7 mg/dL (0.55-1.02) 05/23/17 07:00 Creat Clearance w eGFR > 60 (>60) 05/23/17 07:00 Random Glucose 89 mg/dL (74-106) 05/23/17 07:00 Calcium 7.9 mg/dL (8.5-10.1) L 05/23/17 07:00 Total Bilirubin 0.4 mg/dL (0.2-1.0) D 05/23/17 07:00 AST 17 U/L (15-37) 05/23/17 07:00 ALT 22 U/L (12-78) 05/23/17 07:00 Alkaline Phosphatase 60 U/L (45-117) 05/23/17 07:00 Total Protein 5.6 g/dl (6.4-8.2) L 05/23/17 07:00 Albumin 2.8 g/dl (3.4-5.0) L 05/23/17 07:00 Current Medications Generic Name Dose Route Start Last Admin Trade Name Freq PRN Reason Stop Dose Admin Acetaminophen 650 mg 05/22/17 14:59 05/23/17 10:44 Tylenol Oral Solution - PO 650 mg Q4H PRN Administration PAIN Sodium Chloride 1,000 mls @ 100 mls/hr 05/21/17 06:15 05/23/17 12:02 Normal Saline - IV 100 mls/hr ASDIR RINA Administration Metronidazole 500 mg in 100 mls @ 100 mls/hr 05/21/17 10:00 05/23/17 10:24 Flagyl 500mg Premixed Ivpb - IVPB 100 mls/hr Q8H-IV RINA Administration Levofloxacin 500 mg in 100 mls @ 100 mls/hr 05/22/17 06:00 05/23/17 05:35 Levaquin 500 Mg Premixed Ivpb - IVPB 100 mls/hr DAILY@0600 RINA Administration Ondansetron HCl 4 mg 05/22/17 09:24 05/22/17 21:24 Zofran Injection IVPB 4 mg Q6H PRN Administration NAUSEA EKG: NSR,Vent rate 68, QTC 459No acute St/T wave changes Ct abdomen and pelvis : acute colitis from transverse till rectum , choledocolithisis with no acute cholecystitis , no CBD dilation. 3 cm left ovarian cysts. ASSESSMENT/PLAN: Patient is a 41 year old female presented to ED. for having severe abdominal pain with bloody diarrhea developed after having Telapia. CT scan was positive for colitis. # Acute cholitis with bloody diarrhea improved , no further diarrhea, tolerating diet well, no further abdominal pain, patient is being discharged on Levaquin 500mg po daily x 7 days, Flagyl 500mg po q8h x 7 more days. Bacid is recommended. Patient will follow with in a wee period and colonoscopy as per . Discharge time 35 minutes. Visit type - Emergency Visit Emergency Visit: Yes ED Registration Date: 05/21/17 Care time: The patient presented to the Emergency Department on the above date and was hospitalized for further evaluation of their emergent condition. - New Patient This patient is new to me today: No - Critical Care Critical Care patient: No
[2017-05-23 15:51] VITALS: BP 107/63; PULSE 68; TEMP 99
--- NOTE | 2017-05-25 12:10 | DS ---
Physical Examination Vital Signs: Progress note entered instead of a Discharge summary. on 05/23/2017 Patient is comfortable with no acute distress, no further bleeding today. No abdominal pain is reported, able to eat without any difficulty. Vital Signs Temperature 99.0 F 05/23/17 14:45 Pulse Rate 68 05/23/17 14:45 Respiratory Rate 18 05/23/17 14:45 Blood Pressure 107/63 05/23/17 14:45 O2 Sat by Pulse Oximetry (%) 100 05/23/17 09:00 GENERAL: The patient is awake, alert, and fully oriented, in mild distress. HEAD: Normal with no signs of trauma. EYES: PERRL, extraocular movements intact, sclera anicteric, conjunctiva clear. ENT: moist mucous membranes. NECK: supple. NO JVD LUNGS: Breath sounds equal, clear to auscultation bilaterally, no wheezes, no crackles, no accessory muscle use. HEART: Regular rate and rhythm, S1, S2 without murmur, rub or gallop. ABDOMEN: Soft, NT, nondistended, positive for BS,bowel sounds, no guarding, no rebound, EXTREMITIES: 2+ pulses, warm, well-perfused, no edema. NEUROLOGICAL: no focal deficit. Normal speech, gait is steady PsYCH: Normal mood, normal affect. SKIN: Warm, dry, normal turgor, CBCD WBC 12.3 K/mm3 (4.0-10.0) H 05/23/17 07:00 RBC 4.34 M/mm3 (3.60-5.2) 05/23/17 07:00 Hgb 11.6 GM/dL (10.7-15.3) 05/23/17 07:00 Hct 35.8 % (32.4-45.2) 05/23/17 07:00 MCV 82.6 fl (80-96) 05/23/17 07:00 MCHC 32.4 g/dl (32.0-36.0) 05/23/17 07:00 RDW 13.8 % (11.6-15.6) 05/23/17 07:00 Plt Count 227 K/MM3 (134-434) 05/23/17 07:00 MPV 9.5 fl (7.5-11.1) 05/23/17 07:00 CMP Sodium 142 mmol/L (136-145) 05/23/17 07:00 Potassium 3.8 mmol/L (3.5-5.1) 05/23/17 07:00 Chloride 108 mmol/L (98-107) H 05/23/17 07:00 Carbon Dioxide 25 mmol/L (21-32) 05/23/17 07:00 Anion Gap 9 (8-16) 05/23/17 07:00 BUN 7 mg/dL (7-18) 05/23/17 07:00 Creatinine 0.7 mg/dL (0.55-1.02) 05/23/17 07:00 Creat Clearance w eGFR > 60 (>60) 05/23/17 07:00 Random Glucose 89 mg/dL (74-106) 05/23/17 07:00 Calcium 7.9 mg/dL (8.5-10.1) L 05/23/17 07:00 Total Bilirubin 0.4 mg/dL (0.2-1.0) D 05/23/17 07:00 AST 17 U/L (15-37) 05/23/17 07:00 ALT 22 U/L (12-78) 05/23/17 07:00 Alkaline Phosphatase 60 U/L (45-117) 05/23/17 07:00 Total Protein 5.6 g/dl (6.4-8.2) L 05/23/17 07:00 Albumin 2.8 g/dl (3.4-5.0) L 05/23/17 07:00 Current Medications Generic Name Dose Route Start Last Admin Trade Name Freq PRN Reason Stop Dose Admin Acetaminophen 650 mg 05/22/17 14:59 05/23/17 10:44 Tylenol Oral Solution - PO 650 mg Q4H PRN Administration PAIN Sodium Chloride 1,000 mls @ 100 mls/hr 05/21/17 06:15 05/23/17 12:02 Normal Saline - IV 100 mls/hr ASDIR RINA Administration Metronidazole 500 mg in 100 mls @ 100 mls/hr 05/21/17 10:00 05/23/17 10:24 Flagyl 500mg Premixed Ivpb - IVPB 100 mls/hr Q8H-IV RINA Administration Levofloxacin 500 mg in 100 mls @ 100 mls/hr 05/22/17 06:00 05/23/17 05:35 Levaquin 500 Mg Premixed Ivpb - IVPB 100 mls/hr DAILY@0600 RINA Administration Ondansetron HCl 4 mg 05/22/17 09:24 05/22/17 21:24 Zofran Injection IVPB 4 mg Q6H PRN Administration NAUSEA EKG: NSR,Vent rate 68, QTC 459No acute St/T wave changes Ct abdomen and pelvis : acute colitis from transverse till rectum , choledocolithisis with no acute cholecystitis , no CBD dilation. 3 cm left ovarian cysts. Admitted 05/21/2017- discharged 05/23/2017 Patient is a 41 year old female presented to ED. for having severe abdominal pain with bloody diarrhea developed after having Telapia. CT scan was positive for colitis. # Acute cholitis with bloody diarrhea improved , no further diarrhea, tolerating diet well, no further abdominal pain, patient is being discharged on Levaquin 500mg po daily x 7 days, Flagyl 500mg po q8h x 7 more days. Bacid is recommended. Patient will follow with in a wee period and colonoscopy as per . Discharge time 35 minutes. Labs: CBC, BMP 05/23/17 07:00 05/23/17 07:00 Discharge Summary Reason For Visit: COLITIS Condition: Stable - Instructions Diet, Activity, Other Instructions: Low fat, low sugar diet, low carbohydrate. Lactose free diet. complete antibiotic for 7 days, given Levaquin 500mg po daily x 7 days and Flagyl 500mg every 8 hrs for 7 days. you can take Tylenol for pain 650mg 3x per day as needed. Do not take motrin or advil Please See Room Attendant ; in a week period, you will need Colonoscopy in 6 weeks. If you develop bleeding please come back to the emergency room. Referrals: Nicanor Santos [Primary Care Provider] - Andrzej Benavidez MD [Staff Physician] - 1 Week Disposition: HOME - Home Medications Comprehensive Discharge Medication List: Ambulatory Orders Acidoph/L.bulg/Bif.b/S.thermop [Bacid Caplet] 1 each PO HS #30 tablet 05/23/17 levoFLOXacin [Levaquin -] 500 mg PO DAILY #7 tablet 05/23/17 metroNIDAZOLE [Flagyl -] 500 mg PO Q8H #21 tablet 05/23/17 This patient is new to me today: No Emergency Visit: No Critical Care patient: No - Discharge Referral Referred to [facility] No
== END 2017-05-23 16:59 | disposition home or self-care (01) | DRG 249 ==
LOC: JER 01:29 → INTOOBSV 05:20 → UNDOADMOB 05:20 → JERBED 05:20 → UNDOADMIN 05:37 → JERBED 06:05 → OBSVTOIN 10:11 → J5S 19:56
PROVIDERS: ADMIT Internal Medicine; ATTEND Internal Medicine
DX: K52.89 Other specified noninfective gastroenteritis and colitis (principal); N63.0 Unspecified lump in unspecified breast; F17.200 Nicotine dependence, unspecified, uncomplicated; R11.2 Nausea with vomiting, unspecified; K92.1 Melena; R10.31 Right lower quadrant pain; R10.32 Left lower quadrant pain; K80.50 Calculus of bile duct without cholangitis or cholecystitis without obstruction; N83.292 Other ovarian cyst, left side
CPT/HCPCS: 36415; 74176-TC; 76705-TC; 80048; 80053; 82272; 83735; 84100; 84702; 85025; 85610; 85651; 86140; 86850; 86900; 86901; 87040; 87045; 87046; 87324; 87449; 93005; 93010; 99284-25; G0378; J0131; J7030